=== PATIENT | male | born 1965 | race Hispanic/Latino ===

== ENCOUNTER 2024-05-24 15:19 | Inpatient (IN) | payer BC ==
[~2024-05-24] VITALS: Ht 180.3 cm; Wt 88.5 kg
[2024-05-24] MEDS: 0.9%NACL 1000ML 1,000 ML IV ONE ×2 (15:54→17:10)
[2024-05-24 15:58] LABS: BASOPHILS # (AUTO) 0.07 K/uL (0.00-0.20); BASOPHILS % (AUTO) 0.7 % (0.0-5.0); EOSINOPHILS # (AUTO) 0.05 K/uL (0.00-0.70); EOSINOPHILS % (AUTO) 0.5 % (0.0-8.0); IMMATURE GRANULOCYTE ABSOLUTE 0.02 K/uL (0-1); LYMPHOCYTES # (AUTO) 1.9 K/uL (1.0-4.8); LYMPHOCYTES % (AUTO) 20.5 % (21.0-51.0); MEAN CORPUSCULAR HEMOGLOBIN 31.4 pg (27.0-33.0); MEAN CORPUSCULAR HGB CONC 35.6 g/dL (32.0-36.0); MEAN CORPUSCULAR VOLUME 88.1 fL (79-99); MONOCYTES # (AUTO) 0.5 K/uL (0.1-1.0); MONOCYTES % (AUTO) 4.8 % (3.0-13.0); NEUTROPHILS # (AUTO) 6.9 K/uL (1.8-7.7); NEUTROPHILS % (AUTO) 73.3 % (40.0-77.0); PLATELET COUNT (AUTO) 255 K/uL (130-400); RED BLOOD CELL COUNT(AUTO) 4.88 MIL/uL (4.50-6.20); RED CELL DISTRIBUTION WIDTH 11.9 % (11.0-15.5); WHITE BLOOD COUNT (AUTO) 9.4 K/uL (4.8-10.8)
[2024-05-24 16:21] LABS: APPEARANCE,URINE CLEAR (CLEAR); BILIRUBIN,URINE NEGATIVE (NEGATIVE); COLOR,URINE COLORLESS (YELLOW); GLUCOSE, URINE (UA) >=1000 mg/dL (NEGATIVE); KETONES,URINE 40 mg/dL (NEGATIVE); LEUKOCYTE ESTERASE ,URINE NEGATIVE Leu/uL (NEGATIVE); NITRATE,URINE NEGATIVE (NEGATIVE); OCCULT BLOOD,URINE NEGATIVE (NEGATIVE); PROTEIN,URINE NEGATIVE (NEGATIVE); UROBILINOGEN,URINE 0.2 mg/dL (0.2-1.0)
[2024-05-24 16:30] LABS: ALBUMIN 3.6 g/dL (3.5-5.0); BILIRUBIN,TOTAL 1.1 mg/dL (0.2-1.0); CREATININE 1.2 mg/dL (0.5-1.3); POTASSIUM 4.3 mmol/L (3.5-5.1); TOTAL PROTEIN, SERUM 7.7 g/dL (6.0-8.3)
[2024-05-24 16:31] LABS: ADD UA MICROSCOPIC YES
[2024-05-24 16:44] LABS: MUCUS,URINE RARE LPF (None Seen); WBC,URINE 0-1 /HPF (0-1)
[2024-05-24 17:19] LABS: ABG HCO3 20.6 mmol/L (21.0-28.0); ABG OXYGEN SATURATION 96.3 % (94.0-98.0); ABG PCO2 33 mmHg (35-48); ABG PH 7.414 (7.350-7.450); PO2, ARTERIAL BG 81.5 mmHg (83.0-108.0); VENT MODE, BG RA (ROOM AIR)
[2024-05-24] MEDS: INSULIN humuLIN R 100 UNIT/ML 3ML IV ONE (17:57)
[2024-05-24] MEDS ORDERED: MAGNESIUM 2GM PREMIX 50ML 50 ML IV PRN (23:00)
[2024-05-24] MEDS ORDERED: PoTASSium chl 10% ELIXIR 20MEQ 20 MEQ/15 ML UDCUP PO PRN (23:00)
[2024-05-24] MEDS ORDERED: ondanSETRON 4MG INJ IV PRN (23:00)
[2024-05-24] MEDS ORDERED: hydrALAZine 20MG/ML VIAL IV PRN (23:00)
[2024-05-24] MEDS ORDERED: acetaMINOPHEN 325 MG TAB PO PRN ×2 (23:00)
[2024-05-24] MEDS ORDERED: LACTULOSE 20 GM/30 ML UDCUP PO PRN (23:00)
[2024-05-24] MEDS ORDERED: GLUCAGON 1MG KIT 1 MG ML IM PRN (23:00)
[2024-05-24] MEDS ORDERED: PoTASSium chloRIDE 20MEQ/100ML 100 ML IV PRN (23:00)
[2024-05-24] MEDS ORDERED: DEXTROSE 50%-WATER 50 ML DISP.SYRIN IV PRN (23:00)
[2024-05-24] MEDS: 0.9%NACL 1000ML 1,000 ML IV SCH (23:07)
[2024-05-24] MEDS: INSULIN humuLIN R 100 UNIT/ML 3ML SQ SCH (23:22)
[2024-05-25] MEDS ORDERED: OLME40TA18 PO (02:09)
[2024-05-25] MEDS ORDERED: LEVO25CA4 PO (02:10)
[2024-05-25] MEDS ORDERED: CHLO25TA3 PO (02:11)
[2024-05-25] MEDS ORDERED: TAMS-1 PO (02:11)
[2024-05-25] MEDS ORDERED: EZET10TA48 PO (02:12)
[2024-05-25 02:20] VITALS: BP 149/58; PULSE 65; RESP 20; TEMP 97.5
[2024-05-25 06:28] LABS: BASOPHILS # (AUTO) 0.06 K/uL (0.00-0.20); BASOPHILS % (AUTO) 0.8 % (0.0-5.0); EOSINOPHILS # (AUTO) 0.22 K/uL (0.00-0.70); HEMATOCRIT 40.8 % (42-54); IMMATURE GRANULOCYTE ABSOLUTE 0.02 K/uL (0-1); LYMPHOCYTES # (AUTO) 2.3 K/uL (1.0-4.8); LYMPHOCYTES % (AUTO) 31.4 % (21.0-51.0); MEAN CORPUSCULAR HEMOGLOBIN 31.7 pg (27.0-33.0); MEAN CORPUSCULAR HGB CONC 35.3 g/dL (32.0-36.0); MEAN CORPUSCULAR VOLUME 89.9 fL (79-99); MONOCYTES # (AUTO) 0.5 K/uL (0.1-1.0); MONOCYTES % (AUTO) 6.6 % (3.0-13.0); NEUTROPHILS # (AUTO) 4.3 K/uL (1.8-7.7); NEUTROPHILS % (AUTO) 57.9 % (40.0-77.0); PLATELET COUNT (AUTO) 211 K/uL (130-400); RED BLOOD CELL COUNT(AUTO) 4.54 MIL/uL (4.50-6.20); WHITE BLOOD COUNT (AUTO) 7.4 K/uL (4.8-10.8)
[2024-05-25 06:55] LABS: ALBUMIN 2.9 g/dL (3.5-5.0); BILIRUBIN,TOTAL 0.7 mg/dL (0.2-1.0); MAGNESIUM 2.3 mg/dL (1.80-2.40); POTASSIUM 3.7 mmol/L (3.5-5.1); THYROID STIMULATING HORMONE 2.72 uIU/mL (0.36-3.74); TOTAL PROTEIN, SERUM 6.5 g/dL (6.0-8.3)
[2024-05-25 06:59] LABS: HEMOGLOBIN A1C 11.9 % (4.0-6.0)
[2024-05-25 08:00] VITALS: BP 128/79; PULSE 99; RESP 20; TEMP 98
[2024-05-25 08:30] VITALS: O2SAT 100
[2024-05-25] MEDS: FAMOTIDINE 20MG TAB PO SCH (08:30)
[2024-05-25] MEDS: LoSARTan 100 MG TABLET PO SCH (09:08)
[2024-05-25] MEDS: tamSULOsin HCL 0.4 MG CAP.ER.24H PO SCH (09:08)
[2024-05-25] MEDS: EZETIMIBE 10 MG TAB PO SCH (09:08)
[2024-05-25] MEDS: PoTASSium chloRIDE 20MEQ ER 20 MEQ ERTAB PO ONE (11:26)
[2024-05-25 12:00] VITALS: BP 135/78; PULSE 72; RESP 20; TEMP 98.5
[2024-05-25 16:00] VITALS: BP 131/90; PULSE 76; RESP 20; TEMP 98.2
[2024-05-25] MEDS: INSULIN humuLIN R 100 UNIT/ML 3ML SQ SCH (17:09)
[2024-05-25 20:00] VITALS: BP 137/76; PULSE 74; RESP 18; TEMP 98.9; O2SAT 99
[2024-05-26 00:23] VITALS: BP 135/80; PULSE 79; RESP 19; TEMP 98.5
[2024-05-26 03:36] VITALS: BP 131/72; PULSE 68; RESP 17; TEMP 98.6
[2024-05-26] MEDS: levoTHYROxine 25 MCG TABLET PO SCH (05:46)
[2024-05-26 06:00] LABS: BASOPHILS # (AUTO) 0.05 K/uL (0.00-0.20); BASOPHILS % (AUTO) 0.8 % (0.0-5.0); EOSINOPHILS # (AUTO) 0.16 K/uL (0.00-0.70); EOSINOPHILS % (AUTO) 2.7 % (0.0-8.0); HEMATOCRIT 41.1 % (42-54); IMMATURE GRANULOCYTE ABSOLUTE 0.01 K/uL (0-1); LYMPHOCYTES # (AUTO) 2.1 K/uL (1.0-4.8); LYMPHOCYTES % (AUTO) 34.8 % (21.0-51.0); MEAN CORPUSCULAR HEMOGLOBIN 31.2 pg (27.0-33.0); MEAN CORPUSCULAR HGB CONC 34.8 g/dL (32.0-36.0); MEAN CORPUSCULAR VOLUME 89.7 fL (79-99); MONOCYTES # (AUTO) 0.5 K/uL (0.1-1.0); MONOCYTES % (AUTO) 7.6 % (3.0-13.0); NEUTROPHILS # (AUTO) 3.2 K/uL (1.8-7.7); NEUTROPHILS % (AUTO) 53.9 % (40.0-77.0); PLATELET COUNT (AUTO) 220 K/uL (130-400); RED BLOOD CELL COUNT(AUTO) 4.58 MIL/uL (4.50-6.20); WHITE BLOOD COUNT (AUTO) 5.9 K/uL (4.8-10.8)
[2024-05-26 06:20] LABS: ALBUMIN 2.8 g/dL (3.5-5.0); BILIRUBIN,TOTAL 0.6 mg/dL (0.2-1.0); CREATININE 0.9 mg/dL (0.5-1.3); POTASSIUM 3.3 mmol/L (3.5-5.1); TOTAL PROTEIN, SERUM 6.2 g/dL (6.0-8.3)
[2024-05-26] MEDS: INSULIN humuLIN R 100 UNIT/ML 3ML SQ SCH (06:32)
[2024-05-26] MEDS: PoTASSium chloRIDE 20MEQ ER 20 MEQ ERTAB PO PRN (06:51)
[2024-05-26 07:54] VITALS: BP 139/74; PULSE 67; RESP 18; TEMP 98.5
[2024-05-26 08:00] VITALS: O2SAT 100
[2024-05-26] MEDS: CHLORTHALIDONE 25 MG PO SCH (08:45)
[2024-05-26] MEDS: INSULIN GLARgine 100 UNITS/ML 10 ML VIAL SQ SCH (08:50)
[2024-05-26 12:24] VITALS: BP 144/82; PULSE 68; RESP 16; TEMP 98.4
[2024-05-26] MEDS: PoTASSium chloRIDE 20MEQ ER 20 MEQ ERTAB PO ONE (12:50)
[2024-05-26] MEDS ORDERED: FAMO20TA8 PO (13:49)
== END 2024-05-26 16:14 | disposition home or self-care (01) | DRG 638 ==
LOC: EDH 15:19 → EDHIP 22:54 → 3CH 05-25 02:20
PROVIDERS: ADMIT Hospitalist; ATTEND Hospitalist
DX: E11.00 Type 2 diabetes mellitus with hyperosmolarity without nonketotic hyperglycemic-hyperosmolar coma (NKHHC) (principal); E87.1 Hypo-osmolality and hyponatremia; E11.649 Type 2 diabetes mellitus with hypoglycemia without coma; I10 Essential (primary) hypertension; E86.0 Dehydration; E03.9 Hypothyroidism, unspecified; N40.1 Benign prostatic hyperplasia with lower urinary tract symptoms; R35.0 Frequency of micturition; E78.00 Pure hypercholesterolemia, unspecified; Z79.899 Other long term (current) drug therapy
CPT/HCPCS: 36415; 36600; 80053; 80061; 81001; 82010; 82306; 82607; 82803; 82948; 83036; 83605; 83735; 84443; 85025; 96372; 96374; G0378; J1815; J7030

== ENCOUNTER 2024-06-20 15:13 | Emergency (ER) | payer BC ==
[~2024-06-20] VITALS: Ht 180.3 cm; Wt 90.7 kg
[~2024-06-20 15:13] MED LIST: CHLO25TA3 PO; EZET10TA48 PO; FAMO20TA8 PO; LEVO25CA4 PO; OLME40TA18 PO; TAMS-1 PO
[2024-06-20 15:38] VITALS: BP 108/78; PULSE 90; RESP 16; TEMP 98.3; O2SAT 98
== END 2024-06-20 15:45 | disposition home or self-care (01) ==
LOC: EDH 15:13
DX: T16.2XXA Foreign body in left ear, initial encounter (principal); E11.9 Type 2 diabetes mellitus without complications; E78.00 Pure hypercholesterolemia, unspecified; I10 Essential (primary) hypertension; W44.F4XA Insect entering into or through a natural orifice, initial encounter; Y93.89 Activity, other specified; Y92.89 Other specified places as the place of occurrence of the external cause; Y99.8 Other external cause status
CPT/HCPCS: 69200